=== PATIENT | female | born 1980 | race Caucasian/White ===

== ENCOUNTER 2016-09-29 14:47 | Outpatient (CLI) | payer MEDICAID ==
[~2016-09-29] VITALS: Ht 154.9 cm; Wt 60.5 kg
[2016-09-29 15:35] VITALS: Ht 154.9 cm; Wt 60.5 kg
[2016-09-29 15:36] VITALS: BP 97/49; PULSE 61; RESP 18
[2016-09-29] MEDS ORDERED: PREN-99 PO (15:38)
[2016-09-29] MEDS ORDERED: CALC-176 PO (15:39)
[2016-09-29] MEDS ORDERED: FER325 PO (15:40)
[2016-09-29 17:56] LABS: ADD UMIC YES; URINE BILIRUBIN (Dip) NEGATIVE (NEGATIVE); URINE BLOOD (Dip) NEGATIVE (NEGATIVE); URINE COLOR LT. YELLOW (YELLOW); URINE GLUCOSE (Dip) NEGATIVE (NEGATIVE); URINE KETONES (Dip) NEGATIVE (NEGATIVE); URINE LEUKOCYTE ESTERASE (Dip) 2+ (NEGATIVE); URINE NITRITE (Dip) NEGATIVE (NEGATIVE); URINE TOTAL PROTEIN (Dip) NEGATIVE (NEGATIVE); URINE UROBILINOGEN (Dip) 0.2 E.U./dL (0.1-1.0)
[2016-09-29 18:12] LABS: SQUAMOUS EPITHELIAL CELL,UR RARE; URINE RBCS NONE SEEN /HPF (0)
[2016-09-29] MEDS ORDERED: LACTATED RINGER'S 1,000 ML IV SCH (18:22)
[2016-09-29] MEDS ORDERED: TERBUTALINE 1 MG/ML INJ SC ONE (18:25)
--- NOTE | 2016-09-29 18:37 | RADRPT ---
PROCEDURE: Limited OB ultrasound CLINICAL INDICATION: . Evaluate cervical length. Contractions. TECHNIQUE: Sonographic evaluation to assess the amniotic fluid volume was performed. Transabdomin al imaging and transvaginal imaging of the gravid uterus and the cervix was performed. COMPARISON: None available FINDINGS: Single live intrauterine with cardiac activity is identified. The cervix measures 3 .4 cm in length and is closed and competent. No other abnormality is seen. Breech presentation. N ormal cardiac activity. IMPRESSION: 1. Cervical length equals 3.4 cm and is closed and competent. RPTAT: HMJB .Colby Levin MD, Date Time Electronically viewed and signed by .Colby Levin MD, MD on 09/29/2016 18:37 .B/
== END 2016-09-29 19:50 | disposition home or self-care (01) ==
LOC: OBT 14:47 → L-D 14:48 → OBT 19:50
PROVIDERS: ATTEND Obstetrics & Gynecology
DX: O60.03 Preterm labor without delivery, third trimester (principal); O26.893 Other specified pregnancy related conditions, third trimester; O09.293 Supervision of pregnancy with other poor reproductive or obstetric history, third trimester; O09.523 Supervision of elderly multigravida, third trimester; Z3A.35 35 weeks gestation of pregnancy
CPT/HCPCS: 76817; 81001; 82731; J3105; J7120; 36415; 81003; 96360; G0463

== ENCOUNTER 2016-11-12 10:11 | Outpatient (CLI) | payer MEDICAID ==
[~2016-11-12] VITALS: Ht 157.5 cm; Wt 62.9 kg
[2016-11-12 10:07] VITALS: BP 107/59; PULSE 69; RESP 18
[~2016-11-12 10:11] MED LIST: CALC-176 PO; FER325 PO; PREN-99 PO
[2016-11-12 10:14] VITALS: BMI 28.2
[2016-11-12 10:24] VITALS: Ht 157.5 cm; Wt 62.9 kg
[2016-11-12] MEDS ORDERED: TERBUTALINE 1 MG/ML INJ SC ONE ×2 (11:30→15:30)
[2016-11-12] MEDS ORDERED: LACTATED RINGER'S 500 ML IV ONE (11:30)
--- NOTE | 2016-11-12 12:07 | RADRPT ---
PROCEDURE: Ultrasound OB cervical length CLINICAL INDICATION: Contractions. TECHNIQUE: Sonographic evaluation to assess the cervical length was performed. Transabdominal and transvaginal imaging of the gravid uterus was performed. COMPARISON: Exam dated 09/29/2016. FINDINGS: Single live intrauterine with cardiac activity is identified with a heart rate of 13 8 beats per minute. There is a cephalic lie and a posterior, grade 1-2 placenta. The cervical length equals approximately 3 cm, within normal limits. The cervix is closed. IMPRESSION: 1. Closed cervix with a length of 3 cm. 2. Single viable intrauterine gestation. RPTAT: GG .Eric Hardin MD, MD Date Time Electronically viewed and signed by .Eric Hardin MD, on 11/12/2016 12:07 .P/
[2016-11-12 13:08] LABS: ADD SCAN DIFF NO
[2016-11-12 13:13] LABS: BASOPHILS % 0.4 % (0.0-2.0); EOSINOPHILS % 0.4 % (0.0-7.0); HEMATOCRIT 33.6 % (37.0-47.0); HEMOGLOBIN 11.7 g/dl (12.0-16.0); MEAN CORPUSCULAR HEMOGLOBIN 32.6 pg (29.0-33.0); MEAN CORPUSCULAR HGB CONC 34.8 g/dl (32.0-37.0); MEAN CORPUSCULAR VOLUME 93.6 fl (82.0-101.0); MEAN PLATELET VOLUME 10.1 fl (7.4-10.4); MONOCYTE # 0.7 10^3/ul (0.3-0.9); MONOCYTES % 7.5 % (0.0-11.0); NEUTROPHIL # 5.8 10^3/ul (1.6-7.5); NEUTROPHILS % 59.5 % (39.0-77.0); PLATELET COUNT 181 10^3/UL (140-415); RED BLOOD COUNT 3.59 10^6/ul (4.20-5.40); RED CELL DISTRIBUTION WIDTH 12.7 % (11.5-14.5); WHITE BLOOD COUNT 9.8 10^3/ul (4.8-10.8)
[2016-11-12 13:37] LABS: BARBITURATES Negative (NEGATIVE); BENZODIAZEPINES Negative (NEGATIVE); CANNABINOIDS Negative (NEGATIVE)
[2016-11-12 13:38] LABS: COCAINE Negative (NEGATIVE)
[2016-11-12 13:45] LABS: OPIATES Negative (NEGATIVE)
--- NOTE | 2016-11-12 14:01 | HP ---
Date/Time of Note Date/Time of Note DATE: 11/12/16 TIME: 13:37 OB - History Hx of Present Free Text/Dictation OB Triage Pt is a 36yo at 32+1 by EDC c/w 19wk perinatology U/S. Pt c/o frequent UCs overnight around 0300, fewer this AM. Pt states she hasn't felt any contractions now since arriving to triage. Reports normal FM, denies LOF, VB or dysuria. PROCEDURE: Ultrasound OB cervical length CLINICAL INDICATION: Contractions. TECHNIQUE: Sonographic evaluation to assess the cervical length was performed. Transabdominal and transvaginal imaging of the gravid uterus was performed. COMPARISON: Exam dated 09/29/2016. FINDINGS: Single live intrauterine with cardiac activity is identified with a heart rate of 138 beats per minute. There is a cephalic lie and a posterior, grade 1-2 placenta. The cervical length equals approximately 3 cm, within normal limits. The cervix is closed. IMPRESSION: 1. Closed cervix with a length of 3 cm. 2. Single viable intrauterine gestation. Estimated Due Date: Dec 18, 2016 : 4 Para: 1 Care: Limited Care Past Family/Social History * Past Medical, Surgical, Family and Obstetric Histories reviewed from chart. OB Admission Exam Vital Signs Vital Signs 97.7 107/59 69 Physical Exam Heart Rate: 120's Accelerations: Accelerations Present Decelerations: No Decelerations Varibility: Moderate Contractions on Admission: 6-10 Minutes Apart (1 UCs in first 45 min, uterine irritability and irregular UCs-> resolved after IV hydration and Terbutaline) Last 72 hours Lab Results CBC & BMP 11/12/16 11:55 OB Assessment/Plan Other Assessment: Contractions, resolved FWB reassuring Other plan: Pt d/w Dr. Headley by OB triage RNs and Terbutaline, IV hydration and TVCL ordered UCs have resolved s/p IV hydration and Terbutaline, CL 3cm Pt desiring d/c home Pt appropriate for d/c home and Dr. Headley aware PTL, PPROM and FKC precautions reviewed in detail Questions answered to patient's satisfaction F/up as scheduled on 11/24/16 in clinic, sooner in triage as needed CLAUDINE ALAN MD Nov 12, 2016 14:01
[2016-11-12 14:30] LABS: ADD UMIC YES; URINE BILIRUBIN (Dip) NEGATIVE (NEGATIVE); URINE BLOOD (Dip) TRACE (NEGATIVE); URINE COLOR LT. YELLOW (YELLOW); URINE GLUCOSE (Dip) NEGATIVE (NEGATIVE); URINE KETONES (Dip) NEGATIVE (NEGATIVE); URINE LEUKOCYTE ESTERASE (Dip) 3+ (NEGATIVE); URINE NITRITE (Dip) NEGATIVE (NEGATIVE); URINE TOTAL PROTEIN (Dip) NEGATIVE (NEGATIVE); URINE UROBILINOGEN (Dip) 0.2 E.U./dL (0.1-1.0)
[2016-11-12 14:40] LABS: BACTERIA,URINE FEW; URINE RBCS 0-2 /HPF (0)
--- NOTE | 2016-11-12 17:26 | TRIAGE ---
OB Triage Datetime Report Generated by CPN: 11/12/2016 17:25 Datetime: 11/12/2016 15:29 Stage of : OB Triage Labor Evaluation Frequency: OCC Monitor Mode: External Duration (sec)2399: 80-90 Quality: Mild Pattern: Normal: <= 5 Contractions in 10 Minutes Resting Tone [place]: Relaxed Heart Rate FHR Baseline Rate: 125 Monitor Mode: External US FHR Baseline Changes: No Baseline Change Variability: Moderate 6-25 bpm Accelerations: 15X15 Decelerations: None Category: Category I Pain Assessment Pain Scale: 3 Pain Presence: Constant Pain Type: Pressure Pain Location: Abdomen Datetime: 11/12/2016 14:30 Stage of : OB Triage Labor Evaluation Frequency: OCC Monitor Mode: External Duration (sec)2399: 80-90 Quality: Mild Pattern: Normal: <= 5 Contractions in 10 Minutes Resting Tone [place]: Relaxed Heart Rate FHR Baseline Rate: 120 Monitor Mode: External US FHR Baseline Changes: No Baseline Change Variability: Moderate 6-25 bpm Accelerations: 15X15 Decelerations: None Pain Assessment Pain Scale: 3 Pain Presence: Constant Pain Type: Pressure Pain Location: Abdomen Datetime: 11/12/2016 13:30 Stage of : OB Triage Labor Evaluation Frequency: OCC Monitor Mode: External Duration (sec)2399: 80-90 Quality: Mild Pattern: Normal: <= 5 Contractions in 10 Minutes Resting Tone [place]: Relaxed Heart Rate FHR Baseline Rate: 120 Monitor Mode: External US FHR Baseline Changes: No Baseline Change Variability: Moderate 6-25 bpm Accelerations: 15X15 Decelerations: None Category: Category I Pain Assessment Pain Scale: 3 Pain Presence: Constant Pain Type: Pressure Pain Location: Abdomen Datetime: 11/12/2016 12:30 Stage of : OB Triage Labor Evaluation Frequency: OCC Monitor Mode: External Duration (sec)2399: 80-90 Quality: Mild Pattern: Normal: <= 5 Contractions in 10 Minutes Resting Tone [place]: Relaxed Heart Rate FHR Baseline Rate: 125 Monitor Mode: External US FHR Baseline Changes: No Baseline Change Variability: Moderate 6-25 bpm Accelerations: 15X15 Decelerations: None Category: Category I Pain Assessment Pain Scale: 3 Pain Presence: Constant Pain Type: Pressure Pain Location: Abdomen Datetime: 11/12/2016 11:30 Stage of : OB Triage Labor Evaluation Frequency: OCC Monitor Mode: External Quality: Mild Pattern: Normal: <= 5 Contractions in 10 Minutes Resting Tone [place]: Non Relaxed Heart Rate FHR Baseline Rate: 135 Monitor Mode: External US FHR Baseline Changes: No Baseline Change Variability: Moderate 6-25 bpm Accelerations: 15X15 Decelerations: None Category: Category I Pain Assessment Pain Scale: 3 Pain Presence: Constant Pain Type: Pressure Pain Location: Abdomen Datetime: 11/12/2016 10:45 Monitor Mode: External Quality: Mild Pattern: Normal: <= 5 Contractions in 10 Minutes Resting Tone [place]: Non Relaxed Heart Rate FHR Baseline Rate: 135 Monitor Mode: External US FHR Baseline Changes: No Baseline Change Variability: Moderate 6-25 bpm Accelerations: 15X15 Decelerations: None Category: Category I Pain Assessment Pain Scale: 8 Pain Presence: Constant Pain Type: Pressure Pain Location: Abdomen Datetime: 11/12/2016 10:23 Assessment Type: Triage Maternal Assessment Level of Consciousness: Fully Conscious DTR's/Clonus: DTRs 2+; No Clonus Headache: Denies Blurred Vision: No Respiratory Effort: Unlabored; Regular Rhythm; Equal Expansion Breath Sounds, Left: Clear and Equal Breath Sounds, Right: Clear and Equal Nausea/Vomiting: Denies RUQ Epigastric Pain: Denies Lower Extremities Edema: None Upper Extremities Edema: None Facial Edema: None Fall Risk Assessment History of Falling: (0) No Secondary Diagnosis: (0) No Ambulatory Aid: (0) Bedrest/Nurse Assist IV Therapy: (0) No Gait: (0) Normal/Bedrest/Immobile Mental Status: (0) Oriented to Own Ability Fall Score: 0 Fall Risk Score Definition: No Risk: No action required Datetime: 11/12/2016 10:15 Time of Arrival: 11/12/2016 10:07 EGA: 32.1 Arrived By: Ambulatory Arrived From: Home Chief Complaint: UCS SINCE 0300 Movement: Present Contractions: Occasional Time Contractions Began: 11/12/2016 03:00 Rupture of Membranes: Denies Vaginal Bleeding: None Vaginal Discharge: Denies Recent Sexual Intercouse: Denies Abdominal Trauma: Not Applicable Patient Complaints: Contractions Initial Plan: MONITOR, V/S, NOTIFY OB - ORDERS FOR SUBQ TERB, CBC, UA/UDS, IV HYDRATION, US CERVIC AL LENGTH Datetime: 09/29/2016 19:34 Stage of : OB Triage Labor Evaluation Frequency: x1 Monitor Mode: External Duration (sec)2399: 80 Quality: Mild Pattern: Normal: <= 5 Contractions in 10 Minutes Resting Tone [place]: Relaxed Contraction Comments: pt. denies feeling the UC. Heart Rate FHR Baseline Rate: 130 Monitor Mode: External US Variability: Moderate 6-25 bpm Accelerations: 15X15 Decelerations: None Category: Category I Pain Assessment Pain Scale: 0 Pain Presence: None/Denies Pain Type: N/A Pain Goal: 0 Pain Relief Measures: Comfort Measures Datetime: 09/29/2016 18:49 Labor Evaluation Frequency: IRREGULAR Monitor Mode: External Duration (sec)2399: 40-60 Quality: Mild Resting Tone [place]: Relaxed Contraction Comments: PT DENIES FEELING UCs AT THIS TIME Heart Rate FHR Baseline Rate: 135 Monitor Mode: External US FHR Baseline Changes: No Baseline Change Variability: Moderate 6-25 bpm Accelerations: 15X15 Decelerations: Variable Comments: APPROPRIATE FOR GESTATIONAL AGE Pain Assessment Pain Scale: 0 Pain Presence: None/Denies Pain Type: N/A Datetime: 09/29/2016 18:35 Vaginal Exam Dilatation (cms): 0.0 Effacement (%): 0 Exam By: AO Datetime: 09/29/2016 17:50 Labor Evaluation Frequency: X2 Monitor Mode: External Duration (sec)2399: 40-50 Quality: Mild Resting Tone [place]: Relaxed Contraction Comments: UTERINE IRRITABILITY NOTED Heart Rate FHR Baseline Rate: 130 Monitor Mode: External US FHR Baseline Changes: No Baseline Change Variability: Moderate 6-25 bpm Accelerations: 15X15 Decelerations: None Category: Category I Datetime: 09/29/2016 16:50 Labor Evaluation Frequency: X2 Monitor Mode: External Duration (sec)2399: 50 Quality: Mild Resting Tone [place]: Relaxed Contraction Comments: ITERINE IRRITABILITY NOTED Heart Rate FHR Baseline Rate: 130 Monitor Mode: External US FHR Baseline Changes: No Baseline Change Variability: Moderate 6-25 bpm Accelerations: 15X15 Decelerations: None Category: Category I Datetime: 09/29/2016 15:42 Labor Evaluation Frequency: 3 Monitor Mode: External Duration (sec)2399: 30-40 Quality: Mild Resting Tone [place]: Relaxed Heart Rate FHR Baseline Rate: 130 Monitor Mode: External US FHR Baseline Changes: No Baseline Change Variability: Moderate 6-25 bpm Accelerations: 10X10 Decelerations: None Category: Category I Datetime: 09/29/2016 15:28 Stage of : OB Triage Assessment Type: Admission Assessment Maternal Assessment Level of Consciousness: Fully Conscious DTR's/Clonus: DTRs 2+; No Clonus Headache: Denies Blurred Vision: No Respiratory Effort: Unlabored; Regular Rhythm; Equal Expansion Breath Sounds, Left: Clear and Equal Breath Sounds, Right: Clear and Equal Nausea/Vomiting: Denies RUQ Epigastric Pain: Denies Lower Extremities Edema: None Degree: None Upper Extremities Edema: None Degree: None Facial Edema: None Temperature Route: Oral Fall Risk Assessment History of Falling: (0) No Secondary Diagnosis: (0) No Ambulatory Aid: (0) Bedrest/Nurse Assist IV Therapy: (0) No Gait: (0) Normal/Bedrest/Immobile Mental Status: (0) Oriented to Own Ability Fall Score: 0 Fall Risk Score Definition: No Risk: No action required Monitor Mode: External Heart Rate FHR Baseline Rate: 130 Monitor Mode: External US FHR Baseline Changes: No Baseline Change Variability: Moderate 6-25 bpm Accelerations: 10X10 Decelerations: None Category: Category I Comments: appropriate for GA Pain Assessment Pain Scale: 7 Pain Presence: Intermittent Pain Type: Contraction Pain Location: Abdomen Datetime: 09/29/2016 15:23 Time of Arrival: 09/29/2016 14:41 EGA: 25.6 Arrived By: Ambulatory Arrived From: Dr. Paiz Chief Complaint: pt c/o uterine contractions from July Movement: Present Contractions: Denies/Absent Rupture of Membranes: Denies Vaginal Bleeding: None Vaginal Discharge: Denies Recent Sexual Intercouse: Denies Abdominal Trauma: Not Applicable Patient Complaints: Contractions Additional Patient Complaints: pt c/o U/C to the last 2 month Time Provider Notified: 09/29/2016 17:12 Provider Notified: TANIKA Initial Plan: FFN, UA, ULTRASOUND FOR CERVICAL LENGTH
== END 2016-11-12 17:11 | disposition home or self-care (01) ==
LOC: OBT 10:11 → L-D 10:12 → OBT 17:11
PROVIDERS: ATTEND Obstetrics & Gynecology
DX: O62.9 Abnormality of forces of labor, unspecified (principal); O09.522 Supervision of elderly multigravida, second trimester; Z3A.19 19 weeks gestation of pregnancy
CPT/HCPCS: 36415; 76817; 80307; 81001; 85025; 96360; 96372; J3105; J7120; Z7500; 81003; G0463

== ENCOUNTER 2016-11-26 18:22 | Inpatient (IN) | payer MEDICAID ==
[~2016-11-26] VITALS: Ht 157.5 cm; Wt 63.6 kg
[2016-11-26 19:01] VITALS: Ht 157.5 cm; Wt 63.6 kg
[2016-11-26 19:02] VITALS: BP 107/58; PULSE 61; RESP 18
[2016-11-26] MEDS ORDERED: TERBUTALINE 1 MG/ML INJ SC ONE (20:00)
[2016-11-26] MEDS ORDERED: LACTATED RINGER'S 1,000 ML IV ONE (20:00)
[2016-11-26] MEDS: LACTATED RINGER'S 1,000 ML IV SCH (22:06)
[2016-11-26] MEDS ORDERED: TERBUTALINE 1 MG/ML INJ SC STA (22:26)
--- NOTE | 2016-11-26 22:27 | HP ---
Date/Time of Note Date/Time of Note DATE: 11/26/16 TIME: 22:23 OB - History Hx of Present Free Text/Dictation Patient is at 34 wks ga with contractions She had been seen previously with contractions and treated with IVF and terbutaline and sent home Past Family/Social History * Past Medical, Surgical, Family and Obstetric Histories reviewed from chart. OB Admission Exam Vital Signs Vital Signs Vital Signs Date Time Temp Pulse Resp B/P Pulse Ox O2 Delivery O2 Flow Rate FiO2 11/26/16 19:02 98.7 61 18 107/58 Room Air Physical Exam HEENT: WNL Heart: Rhythm Normal Abdomen: WNL Extremities: Normal Cervical Dilatation: Fingertip OB Assessment/Plan Reason for admission: labor Other Assessment: Admit to Antepartum IVF Terbutaline PRN up to three doses Betamethasone X two doses 24 hours apart OB ultrasound JOHNSON COHN Nov 26, 2016 22:27
[2016-11-26] MEDS ORDERED: ONDANSETRON 4 MG INJ IV PRN (22:30)
[2016-11-26] MEDS: BETAMET NA PHOS/AC(6 MG/ML) 5ML INJ IM SCH (22:47)
[2016-11-27] MEDS: LACTATED RINGER'S 1,000 ML IV SCH ×4 (01:15→20:22)
--- NOTE | 2016-11-27 01:30 | TRIAGE ---
OB Triage Datetime Report Generated by CPN: 11/27/2016 01:30 Datetime: 11/27/2016 00:00 Labor Evaluation Frequency: IRREGULAR Monitor Mode: External Duration (sec)2399: 40-70 Quality: Mild Pattern: Normal: <= 5 Contractions in 10 Minutes Resting Tone [place]: Relaxed Heart Rate FHR Baseline Rate: 120 Monitor Mode: External US Variability: Moderate 6-25 bpm Accelerations: 15X15 Decelerations: None Category: Category I Datetime: 11/26/2016 23:07 Monitor Mode: External US Vaginal Exam Dilatation (cms): 1.0 Effacement (%): 50 Station: -2 Exam By: BEVANGELISTA Vaginal Bleeding: None Cervix, Consistency: Soft Cervix, Position: Midposition Presentation 'A': Cephalic Datetime: 11/26/2016 23:00 Labor Evaluation Frequency: 2-8 Monitor Mode: External Duration (sec)2399: 40-90 Quality: Mild Pattern: Normal: <= 5 Contractions in 10 Minutes Resting Tone [place]: Relaxed Heart Rate FHR Baseline Rate: 125 Monitor Mode: External US Variability: Moderate 6-25 bpm Accelerations: 15X15 Decelerations: None Category: Category I Datetime: 11/26/2016 22:35 Monitor Mode: External US Datetime: 11/26/2016 22:00 Labor Evaluation Frequency: 2-6 Monitor Mode: External Duration (sec)2399: 40-90 Quality: Mild Pattern: Normal: <= 5 Contractions in 10 Minutes Resting Tone [place]: Relaxed Heart Rate FHR Baseline Rate: 120 Monitor Mode: External US Variability: Moderate 6-25 bpm Accelerations: 15X15 Decelerations: None Category: Category I Datetime: 11/26/2016 21:00 Labor Evaluation Frequency: 3-8 Monitor Mode: External Duration (sec)2399: 40-90 Quality: Mild Pattern: Normal: <= 5 Contractions in 10 Minutes Resting Tone [place]: Relaxed Heart Rate FHR Baseline Rate: 130 Monitor Mode: External US Variability: Moderate 6-25 bpm Accelerations: 15X15 Decelerations: None Category: Category I Datetime: 11/26/2016 20:54 Monitor Mode: External US Datetime: 11/26/2016 20:09 Monitor Mode: External US Datetime: 11/26/2016 20:00 Labor Evaluation Frequency: 3-5 Monitor Mode: External Duration (sec)2399: 40-120 Quality: Mild Pattern: Normal: <= 5 Contractions in 10 Minutes Resting Tone [place]: Relaxed Heart Rate FHR Baseline Rate: 125 Monitor Mode: External US Variability: Moderate 6-25 bpm Accelerations: 15X15 Decelerations: None Category: Category I Datetime: 11/26/2016 19:58 Pain Assessment Pain Scale: 3 Pain Presence: Intermittent Pain Type: Cramping; Contraction Pain Location: Abdomen Vaginal Exam Dilatation (cms): 1.0 Effacement (%): 50 Station: -2 Exam By: [employer] Vaginal Bleeding: None Cervix, Consistency: Soft Cervix, Position: Midposition Presentation 'A': Cephalic Datetime: 11/26/2016 19:36 Stage of : OB Triage Assessment Type: Triage Maternal Assessment Level of Consciousness: Fully Conscious DTR's/Clonus: DTRs 2+; No Clonus Headache: Denies Blurred Vision: No Respiratory Effort: Unlabored; Regular Rhythm; Equal Expansion Breath Sounds, Left: Clear and Equal Breath Sounds, Right: Clear and Equal Nausea/Vomiting: Denies RUQ Epigastric Pain: Denies Lower Extremities Edema: None Degree: None Upper Extremities Edema: None Degree: None Facial Edema: None Fall Risk Assessment History of Falling: (0) No Secondary Diagnosis: (0) No Ambulatory Aid: (0) Bedrest/Nurse Assist IV Therapy: (0) No Gait: (0) Normal/Bedrest/Immobile Mental Status: (0) Oriented to Own Ability Fall Score: 0 Fall Risk Score Definition: No Risk: No action required Datetime: 11/26/2016 19:07 Heart Rate FHR Baseline Rate: 120 Monitor Mode: External US FHR Baseline Changes: No Baseline Change Variability: Moderate 6-25 bpm Accelerations: 15X15 Category: Category I Datetime: 11/26/2016 18:53 Stage of : OB Triage Assessment Type: Triage Maternal Assessment Level of Consciousness: Fully Conscious DTR's/Clonus: DTRs 2+; No Clonus Headache: Denies Blurred Vision: No Respiratory Effort: Unlabored; Regular Rhythm; Equal Expansion Breath Sounds, Left: Clear and Equal Breath Sounds, Right: Clear and Equal Nausea/Vomiting: Denies RUQ Epigastric Pain: Denies Lower Extremities Edema: None Degree: None Upper Extremities Edema: None Degree: None Facial Edema: None Temperature Route: Oral Fall Risk Assessment History of Falling: (0) No Secondary Diagnosis: (0) No Ambulatory Aid: (0) Bedrest/Nurse Assist IV Therapy: (0) No Gait: (0) Normal/Bedrest/Immobile Mental Status: (0) Oriented to Own Ability Fall Score: 0 Fall Risk Score Definition: No Risk: No action required Labor Evaluation Frequency: 3-5 Monitor Mode: External Duration (sec)2399: 40 Quality: Mild Resting Tone [place]: Relaxed Monitor Mode: External US Pain Assessment Pain Scale: 6 Pain Presence: Intermittent Pain Type: Pressure Pain Location: Abdomen Datetime: 11/12/2016 17:23 Time of Arrival: 11/26/2016 18:16 EGA: 34.1 Arrived By: Ambulatory Arrived From: Office Chief Complaint: PATIENT SENT IN FROM THE DR OFFICE WITH FOR EVALUATION FOR LABOR Movement: Present Contractions: Regular Rupture of Membranes: Denies Vaginal Bleeding: None Vaginal Discharge: Present Recent Sexual Intercouse: Denies Abdominal Trauma: Not Applicable Patient Complaints: Contractions Time Provider Notified: 11/26/2016 19:31 Provider Notified: GERALDINE Initial Plan: CEFM, SVE, IV HYDRATION, SQ TERB Datetime: 11/12/2016 16:32 Labor Evaluation Frequency: occ Monitor Mode: External Duration (sec)2399: 60-70 Quality: Mild Pattern: Normal: <= 5 Contractions in 10 Minutes Resting Tone [place]: Relaxed Heart Rate FHR Baseline Rate: 130 Monitor Mode: External US FHR Baseline Changes: No Baseline Change Variability: Moderate 6-25 bpm Accelerations: 15X15 Decelerations: None Category: Category I Datetime: 11/12/2016 10:23 Fall Score: 0 Fall Risk Score Definition: No Risk: No action required Datetime: 11/12/2016 10:15 EGA: 32.1 Time Provider Notified: 11/12/2016 11:15 Provider Notified: GERALDINE Datetime: 09/29/2016 15:28 Fall Score: 0 Fall Risk Score Definition: No Risk: No action required Datetime: 09/29/2016 15:23 EGA: 25.6
[2016-11-27] MEDS: NIFEdipine 10 MG CAP PO SCH ×3 (06:13→17:42)
[2016-11-27] MEDS: MULTIVIT/MIN/FOLATE/IRON/PREN TAB PO SCH (09:32)
[2016-11-27] MEDS: FERROUS SULFATE (EC) 325 MG TAB PO SCH (09:32)
--- NOTE | 2016-11-27 15:41 | PN ---
Date/Time of Note Date/Time of Note DATE: 11/27/16 TIME: 15:38 OB Subjective Subjective Subjective patient with decreased frequency of uterne contractions No more C/O uterine cramps OB Objective Objective Objective VSS P/E unchanged on EFM frequency of uterine contractions decreased significantly OB Assessment/Plan Reason for admission: labor Other Assessment: 34 + weeks gestation Other plan: will complete 24 Hr of steroid therapy if stable will D/C home next day HARRIETT DISLA MD Nov 27, 2016 15:41
[2016-11-27] MEDS: BETAMET NA PHOS/AC(6 MG/ML) 5ML INJ IM SCH (23:11)
[2016-11-28] MEDS: NIFEdipine 10 MG CAP PO SCH ×3 (00:07→11:49)
[2016-11-28] MEDS: LACTATED RINGER'S 1,000 ML IV SCH (06:00)
[2016-11-28] MEDS ORDERED: DOCUSATE SODIUM 100 MG CAP PO SCH (09:00)
[2016-11-28] MEDS: MULTIVIT/MIN/FOLATE/IRON/PREN TAB PO SCH (09:11)
[2016-11-28] MEDS: FERROUS SULFATE (EC) 325 MG TAB PO SCH (09:11)
--- NOTE | 2016-11-28 11:46 | DS ---
Date/Time of Note Date/Time of Note DATE: 11/28/16 TIME: 11:44 Obstetrical Discharge Record Final Diagnosis Final Diagnosis: not delivered Other Final Diagnosis uterine contractions Complications Labor Tocolytics: Terbutaline, Other (Nifedipine) Condition on Discharge Physical Assessment Voiding: Yes Bowel Movement: Yes Breast: Soft, non-tender, Filling Fundus: Other (gravid) Abdomen and Incision: soft and gravid Episiotomy: NA Calf Tenderness: No Patient Condition: Good HARRIETT DISLA MD Nov 28, 2016 11:46
--- NOTE | 2016-11-28 11:48 | PD.PPDC ---
[employer] Discharge Instruction Provider Information Physician Information 36 y/o female with labor had tocolysis of labor Diagnosis Final Diagnosis: labor Condition Patient Condition: Good Diet Diet: Resume Regular Diet Activity/Restrictions Activity: Normal Activity May Shower Restrictions: Nothing in the Vagina Follow-up Follow-up with Physician: 4, Day/Days (in clinic) Return to clinic for Comment: uterine contractions HARRIETT DISLA MD Nov 28, 2016 11:48
[2016-11-28] MEDS ORDERED: NIFEdipine PO (11:49)
== END 2016-11-28 12:51 | disposition home or self-care (01) | DRG 778 ==
LOC: OBT 18:22 → L-D 18:22 → OBT 11-27 00:08 → OBG 11-27 00:09
PROVIDERS: ADMIT Obstetrics & Gynecology; ATTEND Obstetrics & Gynecology
DX: O60.03 Preterm labor without delivery, third trimester (principal); Z3A.34 34 weeks gestation of pregnancy
CPT/HCPCS: 36415; 96360; 96361; 96372; G0463; J0702; J3105; J7120

== ENCOUNTER 2016-12-15 07:36 | Inpatient (IN) | payer MEDICAID ==
[~2016-12-15] VITALS: Ht 157.5 cm; Wt 63.7 kg
[~2016-12-15 07:36] MED LIST changes: +NIFEdipine PO
[2016-12-15 07:50] VITALS: Ht 157.5 cm; Wt 63.7 kg
[2016-12-15 07:51] VITALS: BP 105/59; PULSE 71
[2016-12-15] MEDS ORDERED: LACTATED RINGER'S 1,000 ML IV SCH (08:20)
[2016-12-15] MEDS ORDERED: METHYLERGONOVINE 0.2 MG INJ IM PRN ×2 (08:30→18:30)
[2016-12-15] MEDS ORDERED: OXYTOCIN 30 UNITS/LR 500 ML IV PRN ×2 (08:30→18:30)
[2016-12-15] MEDS ORDERED: LIDOCAINE 1% (MPF) 30 ML INJ INJ PRN (08:30)
[2016-12-15] MEDS ORDERED: BUTORPHANOL 2 MG INJ IV PRN ×2 (08:30)
[2016-12-15] MEDS ORDERED: MISOPROSTOL 200 MCG TAB PR PRN ×2 (08:30→18:30)
[2016-12-15] MEDS ORDERED: LACTATED RINGER'S 1,000 ML IV PRN (08:30)
[2016-12-15] MEDS ORDERED: ONDANSETRON 4 MG INJ IV PRN (08:30)
[2016-12-15] MEDS ORDERED: CARBOPROST 250 MCG INJ IM PRN ×2 (08:30→18:30)
[2016-12-15] MEDS ORDERED: OXYTOCIN 30 UNITS/LR 500 ML IV SCH ×2 (08:30)
[2016-12-15] MEDS ORDERED: AMPICILLIN 2 GM/NS (PMX) 100 ML IV ONE (08:30)
[2016-12-15 10:22] LABS: ADD SCAN DIFF NO
[2016-12-15 10:30] LABS: BASOPHILS % 0.3 % (0.0-2.0); EOSINOPHILS % 0.3 % (0.0-7.0); HEMATOCRIT 36.4 % (37.0-47.0); HEMOGLOBIN 12.5 g/dl (12.0-16.0); LYMPHOCYTES # 1.9 10^3/ul (0.8-2.9); LYMPHOCYTES % 18.3 % (15.0-51.0); MEAN CORPUSCULAR HEMOGLOBIN 32.4 pg (29.0-33.0); MEAN CORPUSCULAR HGB CONC 34.3 g/dl (32.0-37.0); MEAN CORPUSCULAR VOLUME 94.3 fl (82.0-101.0); MEAN PLATELET VOLUME 9.4 fl (7.4-10.4); MONOCYTE # 0.7 10^3/ul (0.3-0.9); MONOCYTES % 6.8 % (0.0-11.0); NEUTROPHIL # 7.6 10^3/ul (1.6-7.5); NEUTROPHILS % 72.9 % (39.0-77.0); PLATELET COUNT 164 10^3/UL (140-415); RED BLOOD COUNT 3.86 10^6/ul (4.20-5.40); RED CELL DISTRIBUTION WIDTH 13.2 % (11.5-14.5); WHITE BLOOD COUNT 10.4 10^3/ul (4.8-10.8)
[2016-12-15 10:36] LABS: INR 0.91; PROTIME 12.3 Sec (12.2-14.2)
[2016-12-15 10:37] LABS: PARTIAL THROMBOPLASTIN TIME 26.8 Sec (25.0-35.0)
[2016-12-15] MEDS ORDERED: MINERAL OIL LIGHT 10 ML VIAL TOP ONE (11:00)
[2016-12-15] MEDS ORDERED: AMPICILLIN 1 GM/NS (PMX) 50 ML IV SCH (12:30)
--- NOTE | 2016-12-15 13:46 | HP ---
Date/Time of Note Date/Time of Note DATE: 12/15/16 TIME: 13:42 OB - History Hx of Present Last Menstrual Period: Apr 18, 2016 Estimated Due Date: Jan 06, 2017 : 4 Para: 1 Spontaneous : 2 Therapeutic : 0 Ultrasounds: Normal mid trimester US Obstetrical Complications: Other ( labor ) Medical Complications: None Past Family/Social History * Past Medical, Surgical, Family and Obstetric Histories reviewed from chart. Blood Type: O+ Rubella: immune RPR/VDRL: Negative GBS Status: Unknown HBsAG: Negative OB Admission Exam Vital Signs Vital Signs Vital Signs Date Time Temp Pulse Resp B/P Pulse Ox O2 Delivery O2 Flow Rate FiO2 12/15/16 07:51 98.0 71 105/59 Physical Exam HEENT: WNL Heart: Rhythm Normal Lungs: Clear, Equal Abdomen: WNL Extremities: Normal Reflexes: Normal Cervical Dilatation: 3cm Effacement: 100% Station: -3 Membranes: Intact Heart Rate: 140's Accelerations: Accelerations Present Decelerations: No Decelerations Varibility: Marked Date/Time Contractions Began: 12/15/2016 0630 AM Frequency of Contractions: Q 5-10 Duration: >45 seconds Intensity: Moderate Last 72 hours Lab Results CBC & BMP 12/15/16 09:54 OB Assessment/Plan Reason for admission: labor Other Assessment: 36.6 weeks gestation labor Plan: Expectant Management Other plan: proceed with labor HARRIETT DISLA MD Dec 15, 2016 13:46
--- NOTE | 2016-12-15 13:52 | LDN ---
Date/Time of Note Date/Time of Note DATE: 12/15/16 TIME: 13:46 Delivery Summary vacuome extraction of a viable infant over intact perineum V/E done because of deep variable deceleration of FHTs Weeks of Gestation 36.6 weeks Assisted Vaginal Delivery: Vacuum Placenta Delivered: Spontaneously, Intact & Complete Meconium: none Episiotomy: No Laceration repair: superficial perineal laceration was repaired with 2 0 Chromic Anesthesia type: Local Estimated blood loss: 300 Sponge & Needle done & correct: Yes All needle counts correct: Yes Any foreign bodies felt in the: No Problems: Delivery Information Sex Sex: male Apgars 1 Minute: 9 5 Minute: 9 Suctioning Nose & mouth suctioned at ofelia: Yes Delee suction performed: No Umbilical Cord Umbilical cord with: 3 Vessels Cord presentations: no nuchal cord Cord Blood was obtained: Yes Mother & Baby Disposition Disposition Mom & Baby to Maternity; Good: Yes (mother and baby were recovered in good condition ) Mom transferred to: Other (maternity ) Baby to NICU: No HARRIETT DISLA MD Dec 15, 2016 13:52
[2016-12-15] MEDS ORDERED: ACETAMINOPHEN/CODEINE #3 TAB PO PRN ×3 (14:00→18:30)
[2016-12-15] MEDS ORDERED: IBUPROFEN 600 MG TAB PO PRN (14:00)
[2016-12-15 16:40] VITALS: BP 105/59; PULSE 66; RESP 18
[2016-12-15] MEDS ORDERED: ZOLPIDEM 5 MG TAB PO PRN (18:30)
[2016-12-15] MEDS ORDERED: BENZOCAINE 20% 56 ML SPRAY TOP PRN (18:30)
[2016-12-15] MEDS ORDERED: WITCH HAZEL/GLYCERIN PAD PR PRN (18:30)
[2016-12-15] MEDS ORDERED: DIBUCAINE 1% 30 GM OINT PR PRN (18:30)
[2016-12-15] MEDS ORDERED: LANOLIN 7 GM TUBE TOP PRN (18:30)
[2016-12-15] MEDS: LACTATED RINGER'S 1,000 ML IV* SCH (18:50)
[2016-12-15 20:00] VITALS: BP 98/56; PULSE 71; RESP 17
[2016-12-15] MEDS: SENNA/DOCUSATE NA (8.6MG/50MG) TAB PO SCH (22:00)
[2016-12-15] MEDS: MAGNESIUM HYDROXIDE 30ML CUP PO SCH (22:00)
[2016-12-16] MEDS: IBUPROFEN 600 MG TAB PO SCH ×5 (00:11→23:52)
[2016-12-16] MEDS: LACTATED RINGER'S 1,000 ML IV* SCH (02:25)
[2016-12-16 04:00] VITALS: BP 92/50; PULSE 58; RESP 17
[2016-12-16 08:30] VITALS: BP 93/54; PULSE 65; RESP 19
[2016-12-16 09:26] LABS: ADD SCAN DIFF NO
[2016-12-16] MEDS: MAGNESIUM HYDROXIDE 30ML CUP PO SCH ×2 (09:29→22:06)
[2016-12-16] MEDS: SENNA/DOCUSATE NA (8.6MG/50MG) TAB PO SCH ×2 (09:29→22:06)
[2016-12-16 09:30] LABS: BASOPHILS % 0.2 % (0.0-2.0); EOSINOPHILS % 0.3 % (0.0-7.0); HEMATOCRIT 36.2 % (37.0-47.0); HEMOGLOBIN 12.3 g/dl (12.0-16.0); LYMPHOCYTES # 2.2 10^3/ul (0.8-2.9); LYMPHOCYTES % 17.8 % (15.0-51.0); MEAN CORPUSCULAR VOLUME 94.3 fl (82.0-101.0); MEAN PLATELET VOLUME 9.5 fl (7.4-10.4); MONOCYTE # 0.8 10^3/ul (0.3-0.9); MONOCYTES % 6.1 % (0.0-11.0); NEUTROPHIL # 9.2 10^3/ul (1.6-7.5); NEUTROPHILS % 74.9 % (39.0-77.0); PLATELET COUNT 154 10^3/UL (140-415); RED BLOOD COUNT 3.84 10^6/ul (4.20-5.40); RED CELL DISTRIBUTION WIDTH 13.2 % (11.5-14.5); WHITE BLOOD COUNT 12.3 10^3/ul (4.8-10.8)
[2016-12-16 12:30] VITALS: BP 92/51; PULSE 68; RESP 16
[2016-12-16 16:00] VITALS: BP 101/59; PULSE 66; RESP 17
--- NOTE | 2016-12-16 16:52 | DS ---
Date/Time of Note Date/Time of Note home next day DATE: 12/16/16 TIME: 16:51 Obstetrical Discharge Record Final Diagnosis Final Diagnosis: Term delivered Other Final Diagnosis S/P vaginal delivery Vaginal Delivery Obstetrical Delivery: Spontaneous, Laceration, Repaired Complications Augmentation: Yes Condition on Discharge Physical Assessment Last Vitals: see nurses notes Voiding: Yes Bowel Movement: Yes Breast: Soft, non-tender, Filling Fundus: Firm Abdomen and Incision: soft BS + Episiotomy: N/A perineum healing Calf Tenderness: No Patient Condition: Good HARRIETT DISLA MD Dec 16, 2016 16:52
--- NOTE | 2016-12-16 16:53 | PD.PPDC ---
[employer] Discharge Instruction Provider Information Physician Information 36 y/o female had vaginal delivery Diagnosis Final Diagnosis: S/P vaginal delivery Condition Patient Condition: Good Diet Diet: Resume Regular Diet Activity/Restrictions Activity: Normal Activity May Shower Restrictions: Nothing in the Vagina Return to Work or School: January 31, 2017 Follow-up Follow-up with Physician: 4, Week/Weeks (in clinic ) Return to clinic for OB Instructions: Breast Tenderness Depression HARRIETT DISLA MD Dec 16, 2016 16:53
[2016-12-16] MEDS ORDERED: IBUP-1542 PO (16:54)
[2016-12-16] MEDS ORDERED: IBUPROFEN 600 MG TAB PO SCH (18:00)
[2016-12-16 20:35] VITALS: BP 94/54; PULSE 80; RESP 19
[2016-12-17 04:00] VITALS: BP 97/51; PULSE 56; PULSE 60; RESP 18
[2016-12-17] MEDS: IBUPROFEN 600 MG TAB PO SCH ×3 (05:24→17:54)
[2016-12-17 08:20] VITALS: BP 89/54; PULSE 57; RESP 17
[2016-12-17] MEDS ORDERED: DIPHTH/TET/ACEL PERTUSS (ADULT) 0.5 ML VIAL IM* ONE (09:00)
[2016-12-17] MEDS ORDERED: MEASLES,MUMPS,RUBELLA VACCINE INJ SC* ONE (09:00)
[2016-12-17] MEDS ORDERED: VARICELLA VACCINE LIVE/PF 1,350 UNIT/0.5 ML ML SC* ONE (09:00)
[2016-12-17] MEDS: MAGNESIUM HYDROXIDE 30ML CUP PO SCH (09:30)
[2016-12-17] MEDS: SENNA/DOCUSATE NA (8.6MG/50MG) TAB PO SCH (09:30)
[2016-12-17 16:04] VITALS: BP 114/60; PULSE 60; RESP 16
== END 2016-12-17 18:15 | disposition home or self-care (01) | DRG 775 ==
LOC: L-D 07:36 → OBT 07:36 → L-D 08:30 → PP1 16:44
PROVIDERS: ADMIT Obstetrics & Gynecology; ATTEND Obstetrics & Gynecology
PROC: 10E0XZZ Delivery of Products of Conception, External Approach (ICD-10-PCS; principal; 2016-12-15)
PROC: 0HQ9XZZ Repair Perineum Skin, External Approach (ICD-10-PCS; 2016-12-15)
DX: O70.0 First degree perineal laceration during delivery (principal); O60.14X0 Preterm labor third trimester with preterm delivery third trimester, not applicable or unspecified; Z3A.36 36 weeks gestation of pregnancy; Z37.0 Single live birth
CPT/HCPCS: 85025; 85610; 85730; 86592; 86900; 86901; 87340; 90715; 90716; 99464; G0463; J0290; J2590; J7120

== ENCOUNTER 2019-01-01 10:10 | Emergency (ER) | payer SELFPAY ==
[~2019-01-01] VITALS: Ht 157.5 cm; Wt 56.0 kg
[~2019-01-01 10:10] MED LIST changes: +IBUP-1542 PO; -NIFEdipine PO
[2019-01-01 10:20] VITALS: Ht 157.5 cm; Wt 56.0 kg
--- NOTE | 2019-01-01 10:57 | ERD ---
ER Documentation Chief Complaint Chief Complaint vaginal bleed since yesterday, 12 weeks ,denies pain HPI 41-year-old female, presents with 1 day with vaginal spotting. The patient is approximately 11 weeks by LMP 10/17/18. The patient denies fever, no chills, she is complaining of mild nausea. ROS All systems reviewed and are negative except as per history of present illness. Medications Home Meds Active Scripts Ondansetron Hcl* (Zofran*) 4 Mg Tablet, 4 MG PO Q8H PRN for NAUSEA AND/OR VOMITING, #12 TAB Prov:CASS ROMAN MD 01/01/19 Ibuprofen* (Motrin*) 400 Mg Tab, 400 MG PO Q6H PRN for PAIN AND OR ELEVATED TEMP, #30 TAB Prov:CASS ROMAN MD 01/01/19 Acetaminophen* (Tylenol*) 325 Mg Tablet, 2 TAB PO Q6 PRN for PAIN AND OR ELEVATED TEMP, #20 TAB Prov:CASS ROMAN MD 01/01/19 Ibuprofen* (Ibuprofen*) 600 Mg Tablet, 600 MG PO Q6, #30 TAB 0 Refills Prov:HARRIETT DISLA MD 12/16/16 Reported Medications Ferrous Sulfate* (Ferrous Sulfate*) 325 Mg Tabec, 325 MG PO BID, TAB 09/29/16 Calcium Cmb 2-Mag Cmb 12-Vit D3 (Calcium 500) 1 Each Tablet, 1 TAB PO DAILY, TAB 09/29/16 Vit #76/Iron,Carb/FA (Pnv 29-1 Tablet) 1 Each Tablet, 1 EACH PO DAILY, TAB 09/29/16 Allergies Allergies: Coded Allergies: No Known Drug Allergies (Verified Allergy, Unknown, 01/01/19) PMhx/Soc Medical and Surgical Hx: pt denies Medical Hx, pt denies Surgical Hx Hx Alcohol Use: No Hx Substance Use: No Hx Tobacco Use: No Smoking Status: Never smoker FmHx Family History: No diabetes, No coronary disease Physical Exam Vitals Vital Signs Date Temp Pulse Resp B/P (MAP) Pulse Ox O2 O2 Flow FiO2 Time Delivery Rate 01/01/19 98.1 78 18 118/72 99 Room Air 12:50 (87) 01/01/19 98.0 61 18 120/76 99 10:20 (91) Physical Exam Const: No acute distress Head: Atraumatic Eyes: Normal Conjunctiva ENT: Normal External Ears, Nose and Mouth. Neck: Full range of motion. No meningismus. Resp: Clear to auscultation bilaterally Cardio: Regular rate and rhythm, no murmurs Abd: Soft, non tender, non distended. Normal bowel sounds Skin: No petechiae or rashes Back: No midline or flank tenderness Ext: No cyanosis, or edema Neur: Awake and alert Psych: Normal Mood and Affect Result Diagram: 01/01/19 1143 Results 24 hrs Laboratory Tests Test 01/01/19 11:36 01/01/19 11:43 Urine Color YELLOW Urine Clarity CLOUDY Urine pH 8.0 Urine Specific [place] 1.018 Urine Ketones NEGATIVE mg/dL Urine Nitrite NEGATIVE mg/dL Urine Bilirubin NEGATIVE mg/dL Urine Urobilinogen NEGATIVE mg/dL Urine Leukocyte Esterase NEGATIVE Nicki/ul Urine Microscopic RBC 3 /HPF Urine Microscopic WBC 7 /HPF Urine Squamous Epithelial Cells FEW /HPF Urine Amorphous Crystals FEW /HPF Urine Bacteria FEW /HPF Urine Hemoglobin 2+ mg/dL Urine Glucose NEGATIVE mg/dL Urine Total Protein NEGATIVE mg/dl White Blood Count 8.0 10^3/ul Red Blood Count 4.54 10^6/ul Hemoglobin 13.6 g/dl Hematocrit 40.1 % Mean Corpuscular Volume 88.3 fl Mean Corpuscular Hemoglobin 30.0 pg Mean Corpuscular Hemoglobin Concent 33.9 g/dl Red Cell Distribution Width 12.7 % Platelet Count 218 10^3/UL Mean Platelet Volume 9.3 fl Immature Granulocytes % 0.400 % Neutrophils % 62.4 % Lymphocytes % 29.7 % Monocytes % 6.6 % Eosinophils % 0.5 % Basophils % 0.4 % Nucleated Red Blood Cells % 0.0 /100WBC Immature Granulocytes # 0.030 10^3/ul Neutrophils # 5.0 10^3/ul Lymphocytes # 2.4 10^3/ul Monocytes # 0.5 10^3/ul Eosinophils # 0.0 10^3/ul Basophils # 0.0 10^3/ul Nucleated Red Blood Cells # 0.0 10^3/ul Beta HCG, Quantitative 18691.0 mIU/ml Current Medications Medications Dose Sig/James Start Time Status Last (Trade) Ordered Route PRN Stop Time Admin Dose Reason Admin 650 mg ONCE STAT 4/22/19 DC 01/01/19 Acetaminophen PO 11:21 11:56 (Tylenol 01/01/19 11:35 Tab) 5 mg ONCE ONCE 01/01/19 DC 01/01/19 Metoclopramid PO 11:30 11:56 e HCl 01/01/19 11:35 (Reglan) Patient: AFRICA QUEZADA : 07/08/1977 Age: 41 Sex: F MR #: [id number] DOS: 01/01/19 1121 Ordering MD: CASS ROMAN MD Location: [facility] Room/Bed: PROCEDURE: Obstetrical ultrasound . CLINICAL INDICATION: Vaginal bleeding TECHNIQUE: Multiple sonographic images of the pelvis were obtained utilizing a transabdominal technique. The images were reviewed on a PACS workstation. COMPARISON: None. FINDINGS: There is a single intrauterine present with the crown-rump length measuring 1.6 cm and the gestational sac measures 4 cm which corresponds to a calculated gestational age of 8 weeks and 6 days. No heart tones are identified. The right ovary is not seen. The left ovary is normal and measures 2.6 x 1.3 x 2 cm. No significant free fluid is present within the pelvis. No abnormal adnexal masses are present. RPTAT: AA IMPRESSION: Single intrauterine at 8 weeks and 6 days. No heart tones noted, consistent with demise. Right ovary not visualized. Procedures/MDM Vital signs stable, Physical exam unremarkable. Differential diagnosis include but not limited to: UTI, threatening , incomplete versus complete , ectopic , physiologic implantation bleeding, molar . Physical examination and clinical presentation most likely consistent with inevitable . During the ED course the patient remained hemodynamically stable with minimal bleeding. Results and clinical impression discussed with patient who agrees with management. The patient is stable to be treated outpatient and will be discharged home with close monitoring and follow-up in 48 hours with her primary physician. The patient was instructed regarding the outcomes and the potential complications like severe bleeding. If the patient presents severe bleeding or pain, she was instructed to return to the hospital immediately. Disclaimer: Inadvertent spelling and grammatical errors are likely due to EHR/dictation software use and do not reflect on the overall quality of patient care. Also, please note that the electronic time recorded on this note does not necessarily reflect the actual time of the patient encounter. Departure Diagnosis: Primary Impression: Vaginal bleeding in patient at less than 20 weeks gestation Additional Impression: Inevitable Condition: Stable Additional Instructions: Muchas britta por [facility] para de dios servicio. Esperamos que en de dios visita a la giuseppe de emergencia de dios problema medico haya sido solucionado y que se sienta mucho mejor. Para estar seguros que de dios mejoria sigue en proceso, le pedimos el favor de hacer gilberto jovanni de seguimiento medico con de dios doctor primario en los proximos 2-4 mcgarry. Lleve con usted estos documentos y las medicinas recetadas. Si dimas sintomas empeoran, NO SE ESPERE, por favor regrese a giuseppe de emergencia INMEDIATAMENTE. En wall[place] que usted no tenga un mdico de atencin primaria: Llame al mdico o clnica comunitaria de referencia que aparece abajo galen las horas de consultorio para hacer gilberto jovanni para que le vean. CLINICAS: [facility] [phone] [id number] [facility] [phone] [address] [facility] [phone] [facility] [phone] [place] [id number] [phone] [facility] [phone] CASS NEWELL MD Jan 01, 2019 10:57
[2019-01-01] MEDS ORDERED: ACETAMINOPHEN 325 MG TAB PO STA (11:21)
[2019-01-01] MEDS ORDERED: METOCLOPRAMIDE 10 MG TAB PO ONE (11:30)
[2019-01-01] MEDS ORDERED: ACET325T33 PO (12:31)
[2019-01-01] MEDS ORDERED: IBUP-1561 PO (12:31)
[2019-01-01] MEDS ORDERED: ONDA4TAB8 PO (12:31)
[2019-01-01 12:50] VITALS: BP 118/72; PULSE 78; RESP 18
== END 2019-01-01 12:51 | disposition home or self-care (01) ==
LOC: FTE 10:10
DX: O03.9 Complete or unspecified spontaneous abortion without complication (principal)
CPT/HCPCS: 36415; 76801; 81001; 84702; 85025; 86900; 86901